=== PATIENT | female | born 1950 | race Caucasian/White ===

== ENCOUNTER 2018-07-27 16:21 | Emergency (ER) | payer MEDICARE, OTHER ==
--- NOTE | 2018-07-27 16:53 | ERPHSYRPT ---
- History of Present Illness Time Seen by Provider: 07/27/18 16:41 Source: patient Exam Limitations: no limitations Patient Subjective Stated Complaint: Pt states "I have bronchitis and I am taking medrol dose pack, I have taken it before and no reaction but now I am itching, I have a rash and I feel like my tongue is swollen. Triage Nursing Assessment: PT alert and oriented X 3, skin pwd. Pt ambulates with an upright steady gait, able to speak in clear full sentences. PT ichting her shoulders and legs, urticaria noted to chest. Physician History: The patient is a 67-year-old female with her complaining that she has developed an itchy red rash over her back face chest and arms this afternoon. She has been taking the Medrol dosepak since 07/24/18 for wheezing due to bronchitis. She was also given a prescription for ciprofloxacin for the bronchitis but has not taken it because she has a reaction to ciprofloxacin. She is concerned that she is having a reaction to something in the steroid Dosepak even though she has taken it in the past without any problems. She denies any shortness of breath. She states her tongue is slightly swollen. She is not having nausea or vomiting. 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 Timing/Duration: today, gradual onset, worse Quality: burning, itchy Severity: moderate Location: face, torso, extremities Possible Causes: no cause identified Associated Symptoms: edema, rash Allergies/Adverse Reactions: ciprofloxacin Allergy (Severe, Verified 07/27/18 16:35) chest pain and shortness of breath. acetaminophen [From Vicodin] Allergy (Verified 01/18/15 10:37) Shortness of Breath hydrocodone bitartrate [From Vicodin] Allergy (Verified 01/18/15 10:37) Shortness of Breath Home Medications: Aspirin 81 gm Chew [Baby Aspirin 81 mg Chew] 162 mg PO DAILY 01/12/15 [ History] Lovastatin 40 mg PO DAILY 01/12/15 [History] Metoprolol Succinate 50 mg [Toprol Xl 50 MG] 50 mg PO BID 01/12/15 [ History] Esomeprazole Magnesium [Nexium] 40 mg PO DAILY 01/18/15 [History] Hx Tetanus, Diphtheria Vaccination/Date Given: No Hx Influenza Vaccination/Date Given: No Hx Pneumococcal Vaccination/Date Given: No Immunizations Up to Date: Yes - Review of Systems Constitutional: No Fever, No Chills Eyes: No Symptoms Ears, Nose, & Throat: No Symptoms, Mouth Swelling (tongue) Respiratory: Cough Cardiac: No Chest Pain, No Edema, No Syncope Abdominal/Gastrointestinal: No Abdominal Pain, No Nausea, No Vomiting, No Diarrhea Genitourinary Symptoms: No Dysuria Musculoskeletal: No Back Pain, No Neck Pain Skin: Pruritis, Rash Neurological: No Dizziness, No Focal Weakness, No Sensory Changes Psychological: No Symptoms Endocrine: No Symptoms Hematologic/Lymphatic: No Symptoms Immunological/Allergic: No Symptoms All Other Systems: Reviewed and Negative - Past Medical History Pertinent Past Medical History: Yes Neurological History: No Pertinent History ENT History: No Pertinent History Cardiac History: Coronary Artery Disease, High Cholesterol, Hypertension Respiratory History: No Pertinent History Endocrine Medical History: No Pertinent History Musculoskeletal History: No Pertinent History GI Medical History: GERD History: No Pertinent History Psycho-Social History: No Pertinent History Female Reproductive Disorders: No Pertinent History - Past Surgical History Past Surgical History: Yes Neuro Surgical History: No Pertinent History Cardiac: Angioplasty, Cardiac Stent Respiratory: No Pertinent History Gastrointestinal: Other Genitourinary: No Pertinent History Musculoskeletal: Other Female Surgical History: No Pertinent History Other Surgical History: l4,l5 disc surgery,unknown,double mastoid at age 12, three natural childbirth - Social History Smoking Status: Former smoker Exposure to second hand smoke: No Drug Use: none Patient Lives Alone: No - Female History Hx Now: No - Nursing Vital Signs Nursing Vital Signs: Initial Vital Signs Temperature 98.0 F 07/27/18 16:28 Pulse Rate 82 07/27/18 16:28 Respiratory Rate 18 07/27/18 16:28 Blood Pressure 178/82 07/27/18 16:28 O2 Sat by Pulse Oximetry 96 07/27/18 16:28 Pain Scale Pain Intensity 0 - Physical Exam General Appearance: no apparent distress, alert Eye Exam: PERRL/EOMI, eyes nml inspection Ears, Nose, Throat Exam: pharynx normal, moist mucous membranes, other (mild tongue swelling) Neck Exam: normal inspection, non-tender, supple, full range of motion Respiratory Exam: normal breath sounds, No wheezing Cardiovascular Exam: regular rate/rhythm, normal heart sounds Gastrointestinal/Abdomen Exam: soft, mass, No tenderness Pelvic Exam: not done Rectal Exam: not done Back Exam: normal inspection Extremity Exam: normal inspection, normal range of motion Neurologic Exam: alert, oriented x 3, cooperative, normal mood/affect, sensation nml, No motor deficits Skin Exam: rash (red rash to face, neck, back, chest, arms,) SpO2 Interpretation: normal SpO2: 96 Oxygen Delivery: Room Air - Radiology Exams Chest X-ray Interpretation: Interpreted by me, Negative (comp 2V chest 12/19/17.) Ordered Tests: Active Orders 24 hr Category Date Time Status IV Insertion STAT Care 07/27/18 16:59 Active CHEST 2 VIEWS (PA AND LAT) Stat Exams 07/27/18 16:59 Taken Medication Summary Discontinued Medications Generic Name Dose Route Start Last Admin Trade Name Freq PRN Reason Stop Dose Admin Diphenhydramine HCl 50 mg 07/27/18 16:59 07/27/18 17:05 Benadryl 50 Mg/Ml IV 07/27/18 17:00 50 mg STAT ONE Administration Diphenhydramine HCl Confirm 07/27/18 17:01 Benadryl 50 Mg/Ml Administered 07/27/18 17:02 Dose 50 mg .ROUTE .STK-MED ONE Famotidine 20 mg 07/27/18 16:59 07/27/18 17:05 Pepcid 20 Mg Vial IV 07/27/18 17:00 20 mg STAT ONE Administration Famotidine Confirm 07/27/18 17:01 Pepcid 20 Mg Vial Administered 07/27/18 17:02 Dose 20 mg IV .STK-MED ONE Methylprednisolone Sodium Succinate 125 mg 07/27/18 16:59 07/27/18 17:05 Solu-Medrol 125 Mg IV 07/27/18 17:00 125 mg STAT ONE Administration Methylprednisolone Sodium Succinate Confirm 07/27/18 17:02 Solu-Medrol 125 Mg Administered 07/27/18 17:03 Dose 125 mg .ROUTE .STK-MED ONE - Progress Progress: improved Progress Note: 07/27/18 17:57 given benadryl 50 mg, solumedrol 125 mg, and pepcid 20 mg IV. Improved. Rash resolved. Counseled pt/family regarding: lab results, diagnosis, need for follow-up, rad results - Departure Time of Disposition: 17:58 Departure Disposition: Home Clinical Impression: Allergic reaction, Bronchitis Condition: Stable Critical Care Time: No Referrals: GUNNAR HENDERSON MD [Primary Care Provider] - Additional Instructions: You had an allergic reaction to an unknown allergen today. You were given Solu- Medrol 125 mg, Benadryl 50 mg, and Pepcid 20 mg by IV in the ER. You may take Benadryl 25-50 mg every 2-4 hours if needed. Stop taking the steroid Dosepak. You also have bronchitis. Do not take the ciprofloxacin that was prescribed for you earlier. Take doxycycline 100 mg 2 times a day for 10 days. Follow-up with your primary medical doctor next week. Prescriptions: Doxycycline Hyclate 100 mg [Vibramycin 100 MG] 100 mg PO BID #20 tab
[2018-07-27] MEDS ORDERED: solu-MEDROL 125 MG IV ONE (16:59)
[2018-07-27] MEDS ORDERED: Pepcid 20 MG VIAL IV ONE ×2 (16:59→17:01)
[2018-07-27] MEDS ORDERED: BENADRYL 50 MG/ML IV ONE (16:59)
[2018-07-27] MEDS ORDERED: BENADRYL 50 MG/ML ONE (17:01)
[2018-07-27] MEDS ORDERED: solu-MEDROL 125 MG ONE (17:02)
[2018-07-27 18:15] VITALS: BP 154/82; PULSE 68; O2SAT 95
--- NOTE | 2018-07-27 21:30 | XRAY ---
Indication: Chest pressure. Possible allergic reaction. Comparison: December 19, 2017. PA/lateral chest demonstrates chronic left costophrenic angle blunting. No focal infiltrate, consolidation, or large effusion. Heart is not enlarged again with CABG surgery. Bony thorax intact again with mild degenerative changes. Impression: Stable nonacute chest with chronic features.
== END 2018-07-27 18:21 | disposition home or self-care (01) ==
LOC: ED 16:21
DX: T78.40XA Allergy, unspecified, initial encounter (principal); J40 Bronchitis, not specified as acute or chronic; Z79.899 Other long term (current) drug therapy
CPT/HCPCS: 71046; 96374; 96375; 99284; J1200; J2930

== ENCOUNTER 2021-10-22 06:47 | Emergency (ER) | payer MEDICARE ==
[2021-10-22] MEDS ORDERED: ANTIVERT 25 MG PO ONE (07:07)
[2021-10-22] MEDS ORDERED: Sodium Chloride 0.9% 1000 ML 1,000 ML IV STA (07:07)
[2021-10-22] MEDS ORDERED: NORVASC 5 MG PO ONE (07:17)
[2021-10-22] MEDS ORDERED: Lasix 40 MG/4 ML IV ONE (07:17)
[2021-10-22] MEDS ORDERED: Sodium Chloride 0.9% 1000 ML 1,000 ML ONE (07:22)
[2021-10-22] MEDS ORDERED: Lasix 40 MG/4 ML ONE (07:22)
[2021-10-22] MEDS ORDERED: NORVASC 5 MG ONE (07:22)
[2021-10-22] MEDS ORDERED: ANTIVERT 25 MG ONE (07:22)
[2021-10-22 07:31] LABS: Absolute Neutrophil Ct (ANC) 5.72 (1.4-6.9); Basophil (Absolute #) 0.02 (0-0.4); Eosinophil % 2.2 % (0.00-5.0); Eosinophil (Absolute #) 0.17 (0-0.5); Hematocrit 41.3 % (35-47); Hemoglobin 13.2 gm/dl (12.0-16.0); Lymphocyte (Absolute #) 1.45 (1.0-4.6); Lymphocytes % 18.5 % (24.0-44.0); Mean Corpuscular Hemoglobin 27.5 pg (26-32); Mean Platelet Volume 10.2 fl (7.5-11.0); Monocyte (Absolute #) 0.49 (0.0-1.3); Monocytes % 6.2 % (0.0-12.0); Neutrophil % 72.8 % (36.0-66.0); Platelet Count 195 K/mm3 (150-450); Red Cell Distribution Width 14.9 % (11.5-14.0); White Blood Count 7.9 K/mm3 (4.0-10.5)
[2021-10-22] MEDS ORDERED: COREG 12.5 MG PO STA (07:31)
[2021-10-22] MEDS ORDERED: Imdur 30 MG PO STA (07:34)
[2021-10-22 07:47] LABS: ALBUMIN 4.1 g/dL (3.5-5.0); ALKALINE PHOSPHATASE 58 U/L (38-126); ANION GAP 13.3 MEQ/L (5-15); BLOOD UREA NITROGEN 14 mg/dL (7-17); CHLORIDE 107 mmol/L (98-107); Calcium 9.6 mg/dL (8.4-10.2); Carbon Dioxide 26 mmol/L (22-30); Creatinine 1 0.83 mg/dL (0.52-1.04); EST GLOMERULAR FILTRATION RATE > 60.0 ML/MIN; Glucose 132 mg/dL (74-106); Potassium 4.4 mmol/L (3.5-5.1); SGOT/AST 23 U/L (14-36); SGPT/ALT 21 U/L (0-35); SODIUM 142 mmol/L (137-145); Total Protein 6.7 g/dL (6.3-8.2)
--- NOTE | 2021-10-22 08:06 | ERPHSYRPT ---
- History of Present Illness Time Seen by Provider: 10/22/21 07:00 Source: patient Exam Limitations: no limitations Patient Subjective Stated Complaint: dizziness and nausea Triage Nursing Assessment: pt c/o dizziness and nausea which started at 0500 when letting the dog out this morning. Pt denies any vomiting or diarrhea. Physician History: At 5 AM the state with severe dizziness and vertigo. It was worse when she stood or moved she has had nausea but no vomiting her symptoms seem to be improving in the ER. She also was noted to have blood pressure on arrival of 225/95 she had not taken any of her antihypertensive medications. She had a similar episode about a week ago which resolved in a rather short time spontaneously. She denies any chest pain, she has no shortness of breath other than her usual dyspnea, and she denies any headache. Timing/Duration: today Severity: moderate Modifying Factors: Improves With: movement Associated Symptoms: nausea Allergies/Adverse Reactions: ciprofloxacin Allergy (Severe, Verified 10/22/21 07:02) chest pain and shortness of breath. acetaminophen [From Vicodin] Allergy (Verified 10/22/21 07:02) Shortness of Breath hydrocodone bitartrate [From Vicodin] Allergy (Verified 10/22/21 07:02) Shortness of Breath Home Medications: Aspirin 81 gm Chew [Baby Aspirin 81 mg Chew] 81 mg PO DAILY 01/12/15 [ History] Esomeprazole Magnesium [Nexium] 20 mg PO DAILY 01/18/15 [History] Amlodipine Besylate 2.5 mg PO DAILY 10/22/21 [History] Carvedilol 12.5 mg [Coreg 12.5 mg] 1 tab PO BID 10/22/21 [History] Clopidogrel Bisulfate [Clopidogrel] 75 mg PO DAILY 10/22/21 [History] Ezetimibe 10 mg [Zetia 10 MG] 1 tab PO DAILY 10/22/21 [History] Furosemide 40 mg [Lasix 40 MG] 1 tab PO DAILY 10/22/21 [History] Isosorbide Mononitrate [Isosorbide Mononitrate ER] 1 tab PO DAILY 10/22/21 [History] Potassium Chloride [Klor-Con M10] 1 tab PO DAILY 10/22/21 [History] Ranolazine [Ranolazine ER] 500 mg PO BID 10/22/21 [History] Hx Tetanus, Diphtheria Vaccination/Date Given: Yes Hx Influenza Vaccination/Date Given: No Hx Pneumococcal Vaccination/Date Given: No Immunizations Up to Date: Yes Travel Risk - International Travel Have you traveled outside of the country in past 3 weeks: No - Coronavirus Screening Are you exhibiting any of the following symptoms?: No Close contact with a COVID-19 positive Pt in past 14-21 Days: No - Vaccine Status Have you recieved a Covid-19 vaccination: Yes Aircraft [employer]: Moderna - Vaccination Dates Date of 2cond Vaccination (if applicable): 11/04/20 Comment: booster 08/11/21 - Review of Systems Constitutional: No Fever, No Chills Eyes: No Symptoms Ears, Nose, & Throat: Ear Pain (She has had some right ear pain and discomfort recently.) Respiratory: Dyspnea (States she has chronic dyspnea), No Cough Cardiac: No Chest Pain, No Edema, No Syncope Abdominal/Gastrointestinal: Nausea, No Abdominal Pain, No Vomiting, No Diarrhea Genitourinary Symptoms: No Dysuria Musculoskeletal: No Back Pain, No Neck Pain Skin: No Rash Neurological: Dizziness, No Focal Weakness, No Headache, No Sensory Changes Psychological: No Symptoms Endocrine: No Symptoms All Other Systems: Reviewed and Negative - Past Medical History Pertinent Past Medical History: Yes Neurological History: No Pertinent History ENT History: No Pertinent History Cardiac History: Coronary Artery Disease, High Cholesterol, Hypertension Respiratory History: No Pertinent History Endocrine Medical History: No Pertinent History Musculoskeletal History: No Pertinent History GI Medical History: GERD History: No Pertinent History Psycho-Social History: No Pertinent History Female Reproductive Disorders: No Pertinent History 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12,three natural childbirth - Social History Smoking Status: Never smoker Exposure to second hand smoke: No Drug Use: none Patient Lives Alone: No - Female History Hx Now: No - Nursing Vital Signs Nursing Vital Signs: Initial Vital Signs Pulse Rate 82 10/22/21 06:54 Respiratory Rate 24 10/22/21 06:54 Blood Pressure 225/95 10/22/21 06:54 O2 Sat by Pulse Oximetry 96 10/22/21 06:54 Pain Scale Pain Intensity 0 - Physical Exam General Appearance: mild distress Eye Exam: PERRL/EOMI, eyes nml inspection, other (Nystagmus with change in head position) Ears, Nose, Throat Exam: normal ENT inspection, TMs normal, pharynx normal, moist mucous membranes Neck Exam: normal inspection, non-tender, supple, full range of motion Respiratory Exam: normal breath sounds, lungs clear, No respiratory distress Cardiovascular Exam: regular rate/rhythm, normal heart sounds, normal peripheral pulses Gastrointestinal/Abdomen Exam: soft, normal bowel sounds, No tenderness, No mass Back Exam: normal inspection, normal range of motion, No CVA tenderness, No vertebral tenderness Extremity Exam: normal inspection, normal range of motion, pelvis stable Neurologic Exam: alert, oriented x 3, cooperative, 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, normal mood/affect, nml cerebellar function, nml station & gait, sensation nml, No motor deficits Skin Exam: normal color, warm, dry, No rash Lymphatic Exam: No adenopathy SpO2: 96 - Course Nursing assessment & vital signs reviewed: Yes EKG Interpreted by Me: RATE (69), Sinus Rhythm, NORMAL AXIS, NORMAL INTERVALS, Non-specific ST Changes - CT Exams Head CT Interpretation: Tele-radiologist Report Ordered Tests: Active Orders 24 hr Category Date Time Status EKG-ER Only STAT Care 10/22/21 07:07 Active Orthostatic Vital Signs STAT Care 10/22/21 07:09 Active CHEST 1 VIEW (PORTABLE) Stat Exams 10/22/21 07:08 Taken HEAD WITHOUT CONTRAST [CT] Stat Exams 10/22/21 07:08 Taken CBC W DIFF Stat Lab 10/22/21 07:23 Completed CMP Stat Lab 10/22/21 07:23 Completed Lactic Acid Stat Lab 10/22/21 07:25 Completed MAGNESIUM Stat Lab 10/22/21 07:23 Completed TROPONIN Q3H Lab 10/22/21 07:23 Completed TROPONIN Q3H Lab 10/22/21 10:15 Ordered TROPONIN Q3H Lab 10/22/21 13:15 Ordered TROPONIN Q3H Lab 10/22/21 16:15 Ordered TROPONIN Q3H Lab 10/22/21 19:15 Ordered UA W/RFX UR CULTURE Stat Lab 10/22/21 08:07 Completed Medication Summary Discontinued Medications Generic Name Dose Route Start Last Admin Trade Name Alison PRN Reason Stop Dose Admin Amlodipine Besylate 5 mg 10/22/21 07:17 10/22/21 07:31 Amlodipine Besylate 5 Mg Tablet PO 10/22/21 07:18 5 mg STAT ONE Administration Amlodipine Besylate Confirm 10/22/21 07:22 Amlodipine Besylate 5 Mg Tablet Administered 10/22/21 07:23 Dose 5 mg .ROUTE .STK-MED ONE Carvedilol 12.5 mg 10/22/21 10:00 Carvedilol 12.5 Mg Tablet PO 11/21/21 09:59 BID MERCEDES Carvedilol 12.5 mg 10/22/21 07:31 10/22/21 07:39 Carvedilol 12.5 Mg Tablet PO 10/22/21 07:32 12.5 mg ONCE STA Administration Furosemide 40 mg 10/22/21 07:17 10/22/21 07:31 Furosemide 40 Mg/4 Ml Vial IV 10/22/21 07:18 40 mg STAT ONE Administration Furosemide Confirm 10/22/21 07:22 Furosemide 40 Mg/4 Ml Vial Administered 10/22/21 07:23 Dose 40 mg .ROUTE .STK-MED ONE Sodium Chloride 1,000 mls @ 999 mls/hr 10/22/21 07:07 10/22/21 08:41 Sodium Chloride 0.9% 1000 Ml IV 10/22/21 08:07 Infused .Q1H1M STA Infusion Sodium Chloride Confirm 10/22/21 07:22 Sodium Chloride 0.9% 1000 Ml Administered 10/22/21 07:23 Dose 1,000 mls @ ud .ROUTE .STK-MED ONE Isosorbide Mononitrate 30 mg 10/22/21 10:00 Isosorbide Mononitrate 30 Mg Tab PO 11/21/21 09:59 DAILY MERCEDES Isosorbide Mononitrate 30 mg 10/22/21 07:34 10/22/21 07:39 Isosorbide Mononitrate 30 Mg Tab PO 10/22/21 07:35 30 mg ONCE STA Administration Meclizine HCl 25 mg 10/22/21 07:07 10/22/21 07:31 Meclizine Hcl 25 Mg Tablet PO 10/22/21 07:08 25 mg STAT ONE Administration Meclizine HCl Confirm 10/22/21 07:22 Meclizine Hcl 25 Mg Tablet Administered 10/22/21 07:23 Dose 25 mg .ROUTE .STK-MED ONE Lab/Rad Data: Laboratory Result Diagrams 10/22/21 07:23 10/22/21 07:23 Laboratory Results 10/22/21 10/22/21 10/22/21 Range/Units 08:07 07:25 07:23 WBC (4.0-10.5) K/mm3 RBC (4.1-5.4) M/mm3 Hgb (12.0-16.0) gm/dl Hct (35-47) % MCV (78-100) fl MCH (26-32) pg MCHC (32-36) g/dl RDW (11.5-14.0) % Plt Count (150-450) K/mm3 MPV (7.5-11.0) fl Gran % (36.0-66.0) % Eos # (Auto) (0-0.5) Absolute Lymphs (auto) (1.0-4.6) Absolute Monos (auto) (0.0-1.3) Lymphocytes % (24.0-44.0) % Monocytes % (0.0-12.0) % Eosinophils % (0.00-5.0) % Basophils % (0.0-0.4) % Absolute Granulocytes (1.4-6.9) Basophils # (0-0.4) Sodium (137-145) mmol/L Potassium (3.5-5.1) mmol/L Chloride (98-107) mmol/L Carbon Dioxide (22-30) mmol/L Anion Gap (5-15) MEQ/L BUN (7-17) mg/dL Creatinine (0.52-1.04) mg/dL Estimated GFR ML/MIN Glucose (74-106) mg/dL Lactic Acid 1.5 (0.4-2.0) Calcium (8.4-10.2) mg/dL Magnesium (1.6-2.3) mg/dL Total Bilirubin (0.2-1.3) mg/dL AST (14-36) U/L ALT (0-35) U/L Alkaline Phosphatase (38-126) U/L Troponin I < 0.012 (0.000-0.034) ng/mL Serum Total Protein (6.3-8.2) g/dL Albumin (3.5-5.0) g/dL Urine Color COLORLESS (YELLOW) Urine Appearance CLEAR (CLEAR) Urine pH 8.0 (5-6) Ur Specific [place] 1.003 (1.005-1.025) Urine Protein NEGATIVE (Negative) Urine Ketones NEGATIVE (NEGATIVE) Urine Blood NEGATIVE (0-5) Serjio/ul Urine Nitrite NEGATIVE (NEGATIVE) Urine Bilirubin NEGATIVE (NEGATIVE) Urine Urobilinogen NEGATIVE (0-1) mg/dL Ur Leukocyte Esterase NEGATIVE (NEGATIVE) Urine WBC (Auto) NONE (0-5) /HPF Urine RBC (Auto) NONE (0-2) /HPF U Epithel Cells (Auto) NONE (FEW) /HPF Urine Bacteria (Auto) NONE (NEGATIVE) /HPF Urine Culture Reflexed NO (NO) Urine Glucose NEGATIVE (NEGATIVE) mg/dL 10/22/21 10/22/21 Range/Units 07:23 07:23 WBC 7.9 (4.0-10.5) K/mm3 RBC 4.80 (4.1-5.4) M/mm3 Hgb 13.2 (12.0-16.0) gm/dl Hct 41.3 (35-47) % MCV 86.0 (78-100) fl MCH 27.5 (26-32) pg MCHC 32.0 (32-36) g/dl RDW 14.9 H (11.5-14.0) % Plt Count 195 (150-450) K/mm3 MPV 10.2 (7.5-11.0) fl Gran % 72.8 H (36.0-66.0) % Eos # (Auto) 0.17 (0-0.5) Absolute Lymphs (auto) 1.45 (1.0-4.6) Absolute Monos (auto) 0.49 (0.0-1.3) Lymphocytes % 18.5 L (24.0-44.0) % Monocytes % 6.2 (0.0-12.0) % Eosinophils % 2.2 (0.00-5.0) % Basophils % 0.3 (0.0-0.4) % Absolute Granulocytes 5.72 (1.4-6.9) Basophils # 0.02 (0-0.4) Sodium 142 (137-145) mmol/L Potassium 4.4 (3.5-5.1) mmol/L Chloride 107 (98-107) mmol/L Carbon Dioxide 26 (22-30) mmol/L Anion Gap 13.3 (5-15) MEQ/L BUN 14 (7-17) mg/dL Creatinine 0.83 (0.52-1.04) mg/dL Estimated GFR > 60.0 ML/MIN Glucose 132 H (74-106) mg/dL Lactic Acid (0.4-2.0) Calcium 9.6 (8.4-10.2) mg/dL Magnesium 2.0 (1.6-2.3) mg/dL Total Bilirubin 0.60 (0.2-1.3) mg/dL AST 23 (14-36) U/L ALT 21 (0-35) U/L Alkaline Phosphatase 58 (38-126) U/L Troponin I (0.000-0.034) ng/mL Serum Total Protein 6.7 (6.3-8.2) g/dL Albumin 4.1 (3.5-5.0) g/dL Urine Color (YELLOW) Urine Appearance (CLEAR) Urine pH (5-6) Ur Specific Dodge (1.005-1.025) Urine Protein (Negative) Urine Ketones (NEGATIVE) Urine Blood (0-5) Serjio/ul Urine Nitrite (NEGATIVE) Urine Bilirubin (NEGATIVE) Urine Urobilinogen (0-1) mg/dL Ur Leukocyte Esterase (NEGATIVE) Urine WBC (Auto) (0-5) /HPF Urine RBC (Auto) (0-2) /HPF U Epithel Cells (Auto) (FEW) /HPF Urine Bacteria (Auto) (NEGATIVE) /HPF Urine Culture Reflexed (NO) Urine Glucose (NEGATIVE) mg/dL - Progress Progress: improved - Departure Departure Disposition: Home Clinical Impression: Labyrinthitis Condition: Stable Critical Care Time: No Referrals: GUNNAR HENDERSON MD [Primary Care Provider] - Follow up/PCP as directed Instructions: Vertigo (a Type of Dizziness) (DC) Prescriptions: Meclizine HCl 25 mg [Antivert 25 mg] 25 mg PO Q8H 7 Days #20 tablet
[2021-10-22 08:13] LABS: Appearance CLEAR (CLEAR); Bilirubin NEGATIVE (NEGATIVE); Blood NEGATIVE Ery/ul (0-5); Glucose NEGATIVE (NEGATIVE); Ketones NEGATIVE (NEGATIVE); Leukocyte Esterase NEGATIVE (NEGATIVE); Nitrite NEGATIVE (NEGATIVE); Protein,Urine Dip NEGATIVE (Negative); Specific Gravity 1.003 (1.005-1.025); Urobilinogen NEGATIVE mg/dL (0-1)
[2021-10-22 09:03] VITALS: BP 158/101; PULSE 67; O2SAT 98
[2021-10-22] MEDS ORDERED: Imdur 30 MG PO SCH (10:00)
[2021-10-22] MEDS ORDERED: COREG 12.5 MG PO SCH (10:00)
--- NOTE | 2021-10-22 18:25 | XRAY ---
Indication: Vertigo, dizziness, elevated blood pressure. Multiple contiguous axial images obtained through the head without contrast. Comparison: None Age-appropriate global atrophy. 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 No acute intracranial hemorrhage, hydrocephalus, or mass effect. Fink-white matter differentiation preserved. Bony calvarium intact with incidental hyperostosis frontalis interna. Visualized paranasal sinuses and mastoid air cells are clear. Impression: 1. 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 2. No acute intracranial abnormalities. Comment: Preliminary interpretation made by [facility]. No critical discrepancy.
--- NOTE | 2021-10-22 18:28 | XRAY ---
Indication: Dizziness. Elevated blood pressure. Comparison: July 31, 2018. Portable apical lordotic chest remains clear with chronic left costophrenic angle blunting. Heart not enlarged again with CABG. Bony thorax intact again with osteopenia and degenerative changes. No new/acute findings.
== END 2021-10-22 09:20 | disposition home or self-care (01) ==
LOC: ED 06:47
DX: H83.01 Labyrinthitis, right ear (principal); R42 Dizziness and giddiness; R11.0 Nausea; I10 Essential (primary) hypertension; E78.5 Hyperlipidemia, unspecified; I25.10 Atherosclerotic heart disease of native coronary artery without angina pectoris; K21.9 Gastro-esophageal reflux disease without esophagitis; Z79.899 Other long term (current) drug therapy
CPT/HCPCS: 36415; 70450; 71045; 80053; 81001; 83605; 83735; 84484; 85025; 93005; 96360; 96374; 99284; J1940; A9270-GY

== ENCOUNTER 2023-02-06 20:58 | Emergency (ER) | payer MEDICARE ==
[2023-02-06] MEDS ORDERED: TORAdol 30 mg Injection IM ONE (22:25)
[2023-02-06] MEDS ORDERED: TORAdol 30 mg Injection ONE (22:27)
--- NOTE | 2023-02-06 22:37 | ERPHSYRPT ---
- History of Present Illness Time Seen by Provider: 02/06/23 21:30 Source: patient Exam Limitations: no limitations Patient Subjective Stated Complaint: tripped over flipflop and fell in driveway, landed on L hip and L elbow Triage Nursing Assessment: pt arrived via Medic 1, pt alert and oriented x3, pt c/o L hip/buttock pain and L elbow pain, pt has abrasion noted L elbow that 6 cm X 1 cm, pt on plavix, bleeding controlled, no shortening or rotation noted, bilateraly +2 pedal pulses, wound care applied to L elbow upon triage Physician History: Patient is a 72-year-old female presents to our ED via EMS/medic 1 for evaluation of left hip and left elbow pain. Patient states she was outdoors when she tripped on her flip-flop. The fall was not associated with any neuro or cardiovascular symptomology. No chest pain or shortness of breath. No nausea vomiting or diaphoresis. No numbness tingling or weakness. Patient landed on gravel. No BHT or LOC. No neck pain. Cervical spine cleared clinically. Patient states she fell in her driveway. Patient landed on her left hip and left elbow. Left hip pain described as an ache that is localized to the posterior lateral aspect of the left hip. Patient has an abrasion to her left elbow. It is on Plavix. No headache. No numbness tingling or weakness. Injury occurred just prior to arrival. Patient voices no other complaints or concerns at this time. Daughter at bedside. Portions of this note were created with voice recognition technology. There may be grammatical, spelling, punctuation or sound alike errors Method of Injury: fell (She tripped and fell. Patient tripped on her flip- flops) Occurred: just prior to arrival Quality: constant Severity of Pain-Max: moderate Severity of Pain-Current: mild Lower Extremities Pain: leg: left, other: bilateral (Involved lower extremities neurovascular intact distally. Bilateral PT DP pulse palpable. Patient also complains of left elbow pain.) Modifying Factors: Improves With: movement Associated Symptoms: none Allergies/Adverse Reactions: ciprofloxacin Allergy (Severe, Verified 02/06/23 21:01) chest pain and shortness of breath. acetaminophen [From Vicodin] Allergy (Verified 02/06/23 21:01) Shortness of Breath hydrocodone bitartrate [From Vicodin] Allergy (Verified 02/06/23 21:01) Shortness of Breath Home Medications: Aspirin 81 gm Chew [Baby Aspirin 81 mg Chew] 81 mg PO DAILY 01/12/15 [History] Esomeprazole Magnesium [Nexium] 20 mg PO DAILY 01/18/15 [History] Amlodipine Besylate 2.5 mg PO DAILY 10/22/21 [History] Carvedilol 12.5 mg [Coreg 12.5 mg] 1 tab PO BID 10/22/21 [History] Clopidogrel Bisulfate [Clopidogrel] 75 mg PO DAILY 10/22/21 [History] Ezetimibe 10 mg [Zetia 10 MG] 1 tab PO DAILY 10/22/21 [History] Isosorbide Mononitrate [Isosorbide Mononitrate ER] 1 tab PO DAILY 10/22/21 [History] Ranolazine [Ranolazine ER] 500 mg PO BID 10/22/21 [History] Cyanocobalamin (Vitamin B-12) [Vitamin B12] 1,000 mcg PO DAILY 02/07/23 [History] Evolocumab [Repatha Sureclick] 140 mg IM WEEKLY 02/07/23 [History] Mirabegron [Myrbetriq] 25 mg PO DAILY 02/07/23 [History] Hx Tetanus, Diphtheria Vaccination/Date Given: Yes Hx Influenza Vaccination/Date Given: No Hx Pneumococcal Vaccination/Date Given: No Immunizations Up to Date: Yes Travel Risk - International Travel Have you traveled outside of the country in past 3 weeks: No - Coronavirus Screening Are you exhibiting any of the following symptoms?: No Close contact with a COVID-19 positive Pt in past 14-21 Days: No - Vaccine Status Have you recieved a Covid-19 vaccination: Yes Process Controller: Moderna - Vaccination Dates Date of 2cond Vaccination (if applicable): 11/04/20 - Review of Systems Constitutional: No Symptoms, No Fever, No Chills Eyes: No Symptoms Ears, Nose, & Throat: No Symptoms Respiratory: No Symptoms, No Cough, No Dyspnea Cardiac: No Symptoms, No Chest Pain, No Edema, No Syncope Abdominal/Gastrointestinal: No Symptoms, No Abdominal Pain, No Nausea, No Vomiting, No Diarrhea Genitourinary Symptoms: No Symptoms, No Dysuria Musculoskeletal: No Symptoms, No Back Pain, No Neck Pain Skin: No Symptoms, No Rash Neurological: No Symptoms, No Dizziness, No Focal Weakness, No Sensory Changes Psychological: No Symptoms Endocrine: No Symptoms Hematologic/Lymphatic: No Symptoms Immunological/Allergic: No Symptoms All Other Systems: Reviewed and Negative - Past Medical History Pertinent Past Medical History: Yes Neurological History: No Pertinent History ENT History: No Pertinent History Cardiac History: Hypertension, Myocardial Infarction ([place]) Respiratory History: CHF, Pneumonia Endocrine Medical History: No Pertinent History Musculoskeletal History: No Pertinent History GI Medical History: GERD History: No Pertinent History Psycho-Social History: No Pertinent History Female Reproductive Disorders: No Pertinent History Other Medical History: DOUBLE MASTOID SURGERY AT AGE 11, OPEN HEART SURGERY. 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12,three natural childbirth - Social History Smoking Status: Former smoker Exposure to second hand smoke: No Drug Use: none Patient Lives Alone: No - Nursing Vital Signs Nursing Vital Signs: Initial Vital Signs Temperature 98.2 F 02/06/23 21:05 Pulse Rate 77 02/06/23 21:05 Respiratory Rate 18 02/06/23 21:05 Blood Pressure 169/61 02/06/23 21:05 O2 Sat by Pulse Oximetry 97 02/06/23 21:05 Pain Scale Pain Intensity 6 - Physical Exam General Appearance: no apparent distress, alert Eyes, Ears, Nose, Throat Exam: normal ENT inspection, TMs normal, pharynx normal, moist mucous membranes Neck Exam: normal inspection, non-tender, supple, full range of motion Cardiovascular/Respiratory Exam: chest non-tender, normal breath sounds, regular rate/rhythm, no respiratory distress Gastrointestinal/Abdominal Exam: non-tender, guarding Back Exam: normal inspection, No vertebral tenderness Hips Exam: right: non-tender, normal inspection, normal range of motion, no evidence of injury, bilateral: pain, soft tissue tenderness, other (The involved extremity is neurovascular intact distally. Compartments are soft. Cap refill less than 2 seconds. No open or draining lesions. Pain at the posterior lateral aspect of the left hip.) Knees Exam: bilateral knee: non-tender, normal inspection, normal range of motion, no evidence of injury Ankle Exam: bilateral ankle: non-tender, normal inspection, normal range of motion, no evidence of injury Foot Exam: bilateral foot: non-tender, normal inspection, normal range of motion, no evidence of injury Neuro/Tendon Exam: normal sensation, normal motor functions Mental Status Exam: alert, oriented x 3, cooperative Skin Exam: normal color, warm, dry SpO2 Interpretation: normal SpO2: 96 O2 Delivery: Room Air - Course Nursing assessment & vital signs reviewed: Yes - Radiology Exams Elbow X-ray Interpretation: Teleradiologist Report (No fracture of left elbow. Soft tissue swelling observed.) - CT Exams Lower Extremity CT Interpretation: Tele-radiologist Report (Nondisplaced nonangulated subcapital fracture left femur) Ordered Tests: Active Orders 24 hr Category Date Time Status IV Insertion STAT Care 02/07/23 00:19 Active ELBOW (MINIMUM 3 VIEWS) Stat Exams 02/06/23 22:20 Completed LOWER EXTREMITY WO CONTRAST [CT] Stat Exams 02/06/23 21:29 Completed Medication Summary Generic Name Dose Route Start Last Admin Trade Name Freq PRN Reason Stop Dose Admin Carvedilol 12.5 mg 02/07/23 10:00 02/07/23 00:43 Carvedilol 12.5 Mg Tablet PO 03/09/23 09:59 12.5 mg BID MERCEDES Administration Discontinued Medications Generic Name Dose Route Start Last Admin Trade Name Freq PRN Reason Stop Dose Admin Amlodipine Besylate 2.5 mg 02/07/23 00:22 02/07/23 00:43 Amlodipine Besylate 5 Mg Tablet PO 02/07/23 00:23 2.5 mg ONCE ONE Administration Amlodipine Besylate 5 mg 02/07/23 00:22 02/07/23 00:44 Amlodipine Besylate 5 Mg Tablet PO 02/07/23 00:23 5 mg STAT ONE Administration Amlodipine Besylate Confirm 02/07/23 00:27 Amlodipine Besylate 5 Mg Tablet Administered 02/07/23 00:28 Dose 10 mg .ROUTE .STK-MED ONE Bacitracin Zinc 0.9 each 02/07/23 01:13 02/07/23 01:14 Bacitracin Packet 1 Each Pckt TP 02/07/23 01:14 0.9 each STAT ONE Administration Ketorolac Tromethamine 30 mg 02/06/23 22:25 02/06/23 22:30 Ketorolac Tromethamine 30 Mg/Ml Inj IM 02/06/23 22:26 30 mg STAT ONE Administration Ketorolac Tromethamine Confirm 02/06/23 22:27 Ketorolac Tromethamine 30 Mg/Ml Inj Administered 02/06/23 22:28 Dose 30 mg .ROUTE .STK-MED ONE Ranolazine 500 mg 02/07/23 00:20 02/07/23 00:44 Ranolazine 500 Mg Tab.Sr.12h PO 02/07/23 00:21 500 mg ONCE ONE Administration Lab/Rad Data: Laboratory Result Diagrams 02/07/23 00:15 02/06/23 00:15 Laboratory Results 02/07/23 02/06/23 Range/Units 00:15 00:15 WBC 11.7 H (4.0-10.5) x10^3/uL RBC 4.43 (4.1-5.4) x10^6/uL Hgb 12.2 (12.0-16.0) g/dL Hct 38.8 (35-47) % MCV 87.6 (78-100) fL MCH 27.5 (26-32) pg MCHC 31.4 L (32-36) g/dL RDW 14.5 H (11.5-14.0) % Plt Count 182 (150-450) x10^3/uL MPV 10.5 (7.5-11.0) fL Gran % 86.2 H (36.0-66.0) % Immature Gran % (Auto) 0.5 H (0.00-0.4) % Nucleat RBC Rel Count 0.0 (0.00-0.1) % Eos # (Auto) 0.08 (0-0.5) x10^3/uL Immature Gran # (Auto) 0.06 H (0.00-0.03) x10^3u/L Absolute Lymphs (auto) 1.10 (1.0-4.6) x10^3/uL Absolute Monos (auto) 0.34 (0.0-1.3) x10^3/uL Absolute Nucleated RBC 0.00 (0.00-0.01) x10^3u/L Lymphocytes % 9.4 L (24.0-44.0) % Monocytes % 2.9 (0.0-12.0) % Eosinophils % 0.7 (0.00-5.0) % Basophils % 0.3 (0.0-0.4) % Absolute Granulocytes 10.10 H (1.4-6.9) x10^3/uL Basophils # 0.03 (0-0.4) x10^3/uL Sodium 141 (137-145) mmol/L Potassium 4.0 (3.5-5.1) mmol/L Chloride 107 (98-107) mmol/L Carbon Dioxide 25 (22-30) mmol/L Anion Gap 13.5 (5-15) MEQ/L BUN 21 H (7-17) mg/dL Creatinine 0.78 (0.52-1.04) mg/dL Estimated GFR > 60.0 ML/MIN Glucose 157 H (74-106) mg/dL Calcium 9.4 (8.4-10.2) mg/dL Total Bilirubin 0.50 (0.2-1.3) mg/dL AST 37 H (14-36) U/L ALT 25 (0-35) U/L Alkaline Phosphatase 46 (38-126) U/L Serum Total Protein 6.8 (6.3-8.2) g/dL Albumin 3.9 (3.5-5.0) g/dL - Progress Progress: improved Progress Note: Case discussed with orthopedic surgeon at [facility] who accepts transfer at [id number]. However they do not currently have beds available. They anticipate the wait time to be at the earliest sometime tomorrow afternoon. Possibly 2 days [facility] was contacted first per patient's request. 02/07/23 00:[address] Bryant at 12:34 AM hospitalist at [facility] who accepts transfer. However no beds available until tomorrow afternoon at the earliest 02/07/23 00:[address] Carroll orthopedic surgeon at [facility] who declined transfer in light of patient's past medical history. They do not have cardiology available to medically clear patient for procedure. 02/07/23 01:19 Case discussed with ER physician at [facility] who accepts transfer. Transfer was accepted at 1:27 AM. Plan of care discussed with patient. She agrees to transfer to [facility] for further evaluation and treatment. Portions of this note were created with voice recognition technology. There may be grammatical, spelling, punctuation or sound alike errors 02/07/23 01:31 Patient is a 72-year-old female presents to our ED for evaluation of pain to her left hip status post mechanical fall at home. Patient tripped on her flip- flops. Patient fell onto her left hip and left elbow. X-ray left elbow negative for fracture dislocations. CT left hip reveals a nondisplaced angulated subcapital fracture. Involved extremities neurovascular intact distally. CBC CMP essentially nonremarkable. Patient received Toradol for pain control. Patient resting comfortably. Patient declined additional pain medication. Patient was accepted to [facility] for further evaluation and treatment. Complexity of problem addressed is moderate new diagnosis with uncertain prognosis. Critical care time Complexity of data reviewed and analyzed is moderate. Dr. Castañeda independently reviewed and analyzed laboratory work-up. Risk of complication and or risk morbidity/mortality of patient management is high. Patient will require hospitalization for further evaluation and treatment of hip fracture. In light of patient's significant cardiovascular history patient will require medical clearance prior to pubic intervention Plan of care established via shared decision making. Vital stable. Patient agrees to transfer to [facility] for further evaluation and treatment. Portions of this note were created with voice recognition technology. There may be grammatical, spelling, punctuation or sound alike errors 02/07/23 01:33 Counseled pt/family regarding: lab results, diagnosis, rad results - Departure Departure Disposition: Observation Clinical Impression: Subcapital fracture of femur, Elbow abrasion, Fall Condition: Stable Critical Care Time: No Referrals: GUNNAR HENDERSON MD [Primary Care Provider] - Follow up/PCP as directed
--- NOTE | 2023-02-06 22:38 | XRAY ---
Indication: Pain following fall. Multiple contiguous axial images obtained through the left hip. Sagittal and coronal reformatted images obtained. Comparison: None Nondisplaced nonangulated subcapital femur fracture. No other acute fracture, dislocation, or suspicious bony lesions. Surrounding soft tissues demonstrates mild scattered arteriosclerotic calcifications and sigmoid diverticulosis. No suspicious solid/cystic mass, abnormal fluid collection, or pathologic lymphadenopathy. Impression: Subcapital femur fracture. Incidental arteriosclerotic disease and sigmoid diverticulosis.
--- NOTE | 2023-02-06 23:29 | XRAY ---
CLINICAL HISTORY:Pain. History of fall; COMPARISON:None; TECHNIQUES:X-ray of the left elbow showing 3 views: AP, lateral and oblique views; FINDINGS: No acute fracture or dislocation. The joint spaces are maintained. Normal alignment of the bones of the left elbow joint. No sclerotic or lytic bony lesions. Mild soft tissue swelling is seen at the posterior elbow joint. IMPRESSION: 1. No definite acute fracture or dislocation. 2. Mild soft tissue swelling is seen at the posterior elbow joint. 3. Recommend clinical correlation and follow-up with CT if clinically needed. DISCLAIMER: A subtle bone abnormality or fracture may not be readily apparent on x-rays, thus clinical correlation and further imaging including follow up CT, MRI, or follow up x-rays are advised as needed. Electronically Signed by: Randy Benitez MD. (02/06/2023 22:25:13 CAD PROGRAMMER)
[2023-02-07 00:19] LABS: BASOPHIL % 0.3 % (0.0-0.4); Basophil (Absolute #) 0.03 x10^3/uL (0-0.4); Eosinophil % 0.7 % (0.00-5.0); Eosinophil (Absolute #) 0.08 x10^3/uL (0-0.5); Hematocrit 38.8 % (35-47); Hemoglobin 12.2 g/dL (12.0-16.0); IMMATURE GRAN # 0.06 x10^3u/L (0.00-0.03); IMMATURE GRAN % 0.5 % (0.00-0.4); Lymphocytes % 9.4 % (24.0-44.0); Mean Cell Volume 87.6 fL (78-100); Mean Corpuscular Hemoglobin 27.5 pg (26-32); Mean Corpuscular Hgb Concent. 31.4 g/dL (32-36); Mean Platelet Volume 10.5 fL (7.5-11.0); Monocyte (Absolute #) 0.34 x10^3/uL (0.0-1.3); Monocytes % 2.9 % (0.0-12.0); Neutrophil % 86.2 % (36.0-66.0); Platelet Count 182 x10^3/uL (150-450); Red Blood Count 4.43 x10^6/uL (4.1-5.4); Red Cell Distribution Width 14.5 % (11.5-14.0); White Blood Count 11.7 x10^3/uL (4.0-10.5)
[2023-02-07] MEDS ORDERED: Ranexa 500 MG PO ONE (00:20)
[2023-02-07] MEDS ORDERED: NORVASC 5 MG PO ONE ×2 (00:22)
[2023-02-07] MEDS ORDERED: NORVASC 5 MG ONE (00:27)
[2023-02-07] MEDS ORDERED: COREG 12.5 MG ONE (00:33)
[2023-02-07 00:35] LABS: ALBUMIN 3.9 g/dL (3.5-5.0); ALKALINE PHOSPHATASE 46 U/L (38-126); ANION GAP 13.5 MEQ/L (5-15); BLOOD UREA NITROGEN 21 mg/dL (7-17); CHLORIDE 107 mmol/L (98-107); Calcium 9.4 mg/dL (8.4-10.2); Carbon Dioxide 25 mmol/L (22-30); Creatinine 1 0.78 mg/dL (0.52-1.04); EST GLOMERULAR FILTRATION RATE > 60.0 ML/MIN; Glucose 157 mg/dL (74-106); SGOT/AST 37 U/L (14-36); SGPT/ALT 25 U/L (0-35); SODIUM 141 mmol/L (137-145); Total Protein 6.8 g/dL (6.3-8.2)
[2023-02-07] MEDS ORDERED: BACIGUENT PACKET TP ONE (01:13)
[2023-02-07 02:06] VITALS: BP 168/58; PULSE 80
[2023-02-07 03:35] VITALS: O2SAT 96
[2023-02-07] MEDS ORDERED: COREG 12.5 MG PO SCH (10:00)
== END 2023-02-07 02:18 | disposition short-term general hospital (02) ==
LOC: ED 20:58
DX: S72.012A Unspecified intracapsular fracture of left femur, initial encounter for closed fracture (principal); S50.312A Abrasion of left elbow, initial encounter; W01.0XXA Fall on same level from slipping, tripping and stumbling without subsequent striking against object, initial encounter; Y92.007 Garden or yard of unspecified non-institutional (private) residence as the place of occurrence of the external cause; I10 Essential (primary) hypertension; Z79.02 Long term (current) use of antithrombotics/antiplatelets; Z79.899 Other long term (current) drug therapy
CPT/HCPCS: 36000; 36415; 73080; 73700; 80053; 85025; 96372; 99285; J1885; A9270-GY

== ENCOUNTER 2023-08-21 13:38 | Emergency (ER) | payer MEDICARE ==
[2023-08-21 14:25] VITALS: TEMP 97.8
--- NOTE | 2023-08-21 14:44 | ERPHSYRPT ---
- History of Present Illness Time Seen by Provider: 08/21/23 13:50 Source: patient Exam Limitations: no limitations Patient Subjective Stated Complaint: pt states that she was at [facility] on sunday. pt states that Dr. Rosa said she needed to have her gallbladder removed Triage Nursing Assessment: pt came into the er via wheelchair; pt transferred self to the cot; c/o abd pain; pt states she currently denies pain; abd is soft, round, nontender; c/o N/V; pt states last BM 2 days ago; active bowel sounds in all quads; skin PDW; no respiratory distress; vitals wnl Physician History: Patient is a 72-year-old female with a history of hypertension DC CHF cardiac stent on Plavix and aspirin presents to our emergency department for preoperative laboratory testing and admission for a laparoscopic cholecystectomy. Patient had imaging studies performed on Sunday 2 days ago for evaluation of right upper quadrant pain. Patient was observed to have a surgical gallbladder. Surgery was not done at that time due to patient's antiplatelet medication. Patient currently feels well. No active pain. Patient declined pain medication. Patient otherwise feels well. She voices no other complaints or concerns at this time. Portions of this note were created with voice recognition technology. There may be grammatical, spelling, punctuation or sound alike errors Timing/Duration: day(s) Severity: moderate (2 days ago) Modifying Factors: Improves With: other (Palpation right upper quadrant reproduces pain) Associated Symptoms: denies symptoms Allergies/Adverse Reactions: ciprofloxacin Allergy (Severe, Verified 08/21/23 14:07) chest pain and shortness of breath. acetaminophen [From Vicodin] Allergy (Verified 08/21/23 14:07) Shortness of Breath hydrocodone bitartrate [From Vicodin] Allergy (Verified 08/21/23 14:07) Shortness of Breath methylprednisolone Allergy (Verified 08/21/23 14:26) sulfamethoxazole [From Bactrim] Adverse Reaction (Verified 08/21/23 14:08) Vomiting trimethoprim [From Bactrim] Adverse Reaction (Verified 08/21/23 14:08) Vomiting Home Medications: Aspirin 81 gm Chew [Baby Aspirin 81 mg Chew] 81 mg PO DAILY 01/12/15 [History] Esomeprazole Magnesium [Nexium] 20 mg PO DAILY 01/18/15 [History] Carvedilol 12.5 mg [Coreg 12.5 mg] 1 tab PO BID 10/22/21 [History] Clopidogrel Bisulfate [Clopidogrel] 75 mg PO DAILY 10/22/21 [History] Ezetimibe 10 mg [Zetia 10 MG] 1 tab PO DAILY 10/22/21 [History] Isosorbide Mononitrate [Isosorbide Mononitrate ER] 1 tab PO DAILY 10/22/21 [History] Ranolazine [Ranolazine ER] 500 mg PO BID 10/22/21 [History] Cyanocobalamin (Vitamin B-12) [Vitamin B12] 1,000 mcg PO DAILY 02/07/23 [History] Evolocumab [Repatha Sureclick] 140 mg IM WEEKLY 02/07/23 [History] Amlodipine Besylate 5 mg [Norvasc 5 mg] 5 mg PO DAILY 08/21/23 [History] Furosemide 40 mg [Lasix 40 MG] 40 mg PO DAILY 08/21/23 [History] Hydrocodone/Acetaminophen [Hydrocodone-Acetamin 5-325 mg] 1 tab PO Q6HPRN PRN MDD 4 08/21/23 [History] Potassium Chloride Tab* [Klor Con] 10 meq PO DAILY 08/21/23 [History] Hx Tetanus, Diphtheria Vaccination/Date Given: Yes Hx Influenza Vaccination/Date Given: No Hx Pneumococcal Vaccination/Date Given: No Travel Risk - International Travel Have you traveled outside of the country in past 3 weeks: No - Coronavirus Screening Are you exhibiting any of the following symptoms?: Yes Symptoms: Vomiting/Diarrhea Close contact with a COVID-19 positive Pt in past 14-21 Days: No - Vaccine Status Have you recieved a Covid-19 vaccination: Yes [employer]: Moderna - Vaccination Dates Date of 2cond Vaccination (if applicable): 11/04/20 - Review of Systems Constitutional: No Symptoms, No Fever, No Chills Eyes: No Symptoms Ears, Nose, & Throat: No Symptoms Respiratory: No Symptoms, No Cough, No Dyspnea Cardiac: No Symptoms, No Chest Pain, No Edema, No Syncope Abdominal/Gastrointestinal: No Symptoms, No Abdominal Pain, No Nausea, No Vomiting, No Diarrhea Genitourinary Symptoms: No Symptoms, No Dysuria Musculoskeletal: No Symptoms, No Back Pain, No Neck Pain Skin: No Symptoms, No Rash Neurological: No Symptoms, No Dizziness, No Focal Weakness, No Sensory Changes Psychological: No Symptoms Endocrine: No Symptoms Hematologic/Lymphatic: No Symptoms Immunological/Allergic: No Symptoms All Other Systems: Reviewed and Negative - Past Medical History Pertinent Past Medical History: Yes Neurological History: No Pertinent History ENT History: No Pertinent History Cardiac History: Hypertension, Myocardial Infarction (DC) Respiratory History: CHF, Pneumonia Endocrine Medical History: No Pertinent History Musculoskeletal History: No Pertinent History GI Medical History: GERD History: No Pertinent History Psycho-Social History: No Pertinent History Female Reproductive Disorders: No Pertinent History Other Medical History: DOUBLE MASTOID SURGERY AT AGE 11, OPEN HEART SURGERY. 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12,three natural childbirth - Social History Smoking Status: Former smoker Exposure to second hand smoke: No Drug Use: none Patient Lives Alone: No - Nursing Vital Signs Nursing Vital Signs: Initial Vital Signs Temperature 97.8 F 08/21/23 13:42 Pulse Rate 82 08/21/23 13:42 Respiratory Rate 16 08/21/23 13:42 Blood Pressure 125/70 08/21/23 13:42 O2 Sat by Pulse Oximetry 97 08/21/23 13:42 Pain Scale Pain Intensity 0 - Physical Exam General Appearance: no apparent distress, alert Eye Exam: PERRL/EOMI, eyes nml inspection Ears, Nose, Throat Exam: normal ENT inspection, TMs normal, pharynx normal, moist mucous membranes Neck Exam: normal inspection, non-tender, supple, full range of motion Respiratory Exam: normal breath sounds, lungs clear, airway intact, No respiratory distress Cardiovascular Exam: regular rate/rhythm, normal heart sounds, normal peripheral pulses Gastrointestinal/Abdomen Exam: soft, normal bowel sounds, tenderness, other (Tenderness to palpation right upper quadrant), No mass Back Exam: normal inspection, normal range of motion, No CVA tenderness, No vertebral tenderness Extremity Exam: normal inspection, normal range of motion, pelvis stable Neurologic Exam: alert, oriented x 3, cooperative, normal mood/affect, sensation nml, No motor deficits Skin Exam: normal color, warm, dry, No rash Lymphatic Exam: No adenopathy SpO2 Interpretation: normal SpO2: 97 O2 Delivery: Room Air - Course Nursing assessment & vital signs reviewed: Yes Ordered Tests: Active Orders 24 hr Category Date Time Status IV Insertion STAT Care 08/21/23 13:56 Active CBC W DIFF Stat Lab 08/21/23 14:40 Completed CMP Stat Lab 08/21/23 14:30 Completed CULTURE,URINE Stat Lab 08/21/23 Received LIPASE Stat Lab 08/21/23 14:30 Completed TROPONIN Q4H Lab 08/21/23 14:00 Completed TROPONIN Q4H Lab 08/21/23 18:00 Ordered TROPONIN Q4H Lab 08/21/23 22:00 Ordered UA W/RFX UR CULTURE Stat Lab 08/21/23 Completed Medication Summary Generic Name Dose Route Start Last Admin Trade Name Freq PRN Reason Stop Dose Admin Lactated Ringer's 1,000 mls @ 250 mls/hr 08/21/23 15:00 08/21/23 15:05 Lactated Ringers IV 09/20/23 14:59 50 mls/hr .Q4H MERCEDES Administration Discontinued Medications Generic Name Dose Route Start Last Admin Trade Name Freq PRN Reason Stop Dose Admin Bupivacaine HCl Confirm 08/21/23 15:15 Bupivacaine Hcl 2.5 Mg/Ml 10 Ml Administered 08/21/23 15:16 Dose 10 ml .ROUTE .[employer] ONE Lab/Rad Data: Laboratory Result Diagrams 08/21/23 14:40 08/21/23 14:30 Laboratory Results 08/21/23 08/21/23 08/21/23 Range/Units Unknown 14:40 14:30 WBC 8.3 (4.0-10.5) x10^3/uL RBC 5.05 (4.1-5.4) x10^6/uL Hgb 12.5 (12.0-16.0) g/dL Hct 40.8 (35-47) % MCV 80.8 (78-100) fL MCH 24.8 L (26-32) pg MCHC 30.6 L (32-36) g/dL RDW 16.6 H (11.5-14.0) % Plt Count 166 (150-450) x10^3/uL MPV 11.3 H (7.5-11.0) fL Gran % 78.2 H (36.0-66.0) % Immature Gran % (Auto) 0.4 (0.00-0.4) % Nucleat RBC Rel Count 0.0 (0.00-0.1) % Eos # (Auto) 0.03 (0-0.5) x10^3/uL Immature Gran # (Auto) 0.03 (0.00-0.03) x10^3u/L Absolute Lymphs (auto) 1.12 (1.0-4.6) x10^3/uL Absolute Monos (auto) 0.58 (0.0-1.3) x10^3/uL Absolute Nucleated RBC 0.00 (0.00-0.01) x10^3u/L Lymphocytes % 13.6 L (24.0-44.0) % Monocytes % 7.0 (0.0-12.0) % Eosinophils % 0.4 (0.00-5.0) % Basophils % 0.4 (0.0-0.4) % Absolute Granulocytes 6.46 (1.4-6.9) x10^3/uL Basophils # 0.03 (0-0.4) x10^3/uL Sodium 135 L (137-145) mmol/L Potassium 3.8 (3.5-5.1) mmol/L Chloride 102 (98-107) mmol/L Carbon Dioxide 26 (22-30) mmol/L Anion Gap 11.3 (5-15) MEQ/L BUN 13 (7-17) mg/dL Creatinine 0.67 (0.52-1.04) mg/dL Estimated GFR 92.2 ML/MIN Glucose 147 H (74-106) mg/dL Calcium 9.5 (8.4-10.2) mg/dL Total Bilirubin 3.40 H (0.2-1.3) mg/dL AST 117 H (14-36) U/L ALT 102 H (0-35) U/L Alkaline Phosphatase 100 (38-126) U/L Troponin I (0.000-0.034) ng/mL Serum Total Protein 6.6 (6.3-8.2) g/dL Albumin 3.7 (3.5-5.0) g/dL Lipase 613 H (23-300) U/L Urine Color [place] A (Yellow) Urine Appearance Cloudy A (Clear) Urine pH 5.5 (4.6-8.0) Ur Specific [place] >=1.030 A (1.005-1.030) Urine Protein 100 A (Negative) Urine Glucose (UA) Negative (Negative) mg/dL Urine Ketones 40 A (Negative) Urine Blood Negative (Negative) Urine Nitrite Positive A (Negative) Urine Bilirubin Large A (Negative) Urine Urobilinogen 2.0 A (0.2) mg/dL Ur Leukocyte Esterase Small A (Negative) U Hyaline Cast (Auto) None Seen (0-2) /LPF Urine Microscopic RBC 0-2 (0-5) /HPF Urine Microscopic WBC 0-2 (0-5) /HPF Ur Epithelial Cells Few (None Seen) /HPF Calcium Oxalate Crystal 3-5 A (None Seen) /HPF Urine Bacteria Few A (None Seen) /HPF Urine Culture Reflexed YES (NO) 08/21/23 Range/Units 14:00 WBC (4.0-10.5) x10^3/uL RBC (4.1-5.4) x10^6/uL Hgb (12.0-16.0) g/dL Hct (35-47) % MCV (78-100) fL MCH (26-32) pg MCHC (32-36) g/dL RDW (11.5-14.0) % Plt Count (150-450) x10^3/uL MPV (7.5-11.0) fL Gran % (36.0-66.0) % Immature Gran % (Auto) (0.00-0.4) % Nucleat RBC Rel Count (0.00-0.1) % Eos # (Auto) (0-0.5) x10^3/uL Immature Gran # (Auto) (0.00-0.03) x10^3u/L Absolute Lymphs (auto) (1.0-4.6) x10^3/uL Absolute Monos (auto) (0.0-1.3) x10^3/uL Absolute Nucleated RBC (0.00-0.01) x10^3u/L Lymphocytes % (24.0-44.0) % Monocytes % (0.0-12.0) % Eosinophils % (0.00-5.0) % Basophils % (0.0-0.4) % Absolute Granulocytes (1.4-6.9) x10^3/uL Basophils # (0-0.4) x10^3/uL Sodium (137-145) mmol/L Potassium (3.5-5.1) mmol/L Chloride (98-107) mmol/L Carbon Dioxide (22-30) mmol/L Anion Gap (5-15) MEQ/L BUN (7-17) mg/dL Creatinine (0.52-1.04) mg/dL Estimated GFR ML/MIN Glucose (74-106) mg/dL Calcium (8.4-10.2) mg/dL Total Bilirubin (0.2-1.3) mg/dL AST (14-36) U/L ALT (0-35) U/L Alkaline Phosphatase (38-126) U/L Troponin I < 0.012 (0.000-0.034) ng/mL Serum Total Protein (6.3-8.2) g/dL Albumin (3.5-5.0) g/dL Lipase (23-300) U/L Urine Color (Yellow) Urine Appearance (Clear) Urine pH (4.6-8.0) Ur Specific [place] (1.005-1.030) Urine Protein (Negative) Urine Glucose (UA) (Negative) mg/dL Urine Ketones (Negative) Urine Blood (Negative) Urine Nitrite (Negative) Urine Bilirubin (Negative) Urine Urobilinogen (0.2) mg/dL Ur Leukocyte Esterase (Negative) U Hyaline Cast (Auto) (0-2) /LPF Urine Microscopic RBC (0-5) /HPF Urine Microscopic WBC (0-5) /HPF Ur Epithelial Cells (None Seen) /HPF Calcium Oxalate Crystal (None Seen) /HPF Urine Bacteria (None Seen) /HPF Urine Culture Reflexed (NO) - Progress Progress: improved Progress Note: Case discussed with hospitalist hospitalist who accepts admission to observation. 08/21/23 14:59 72-year-old female sent to our ED for preop. Patient will be going to the OR for a laparoscopic cholecystectomy. Patient had a ultrasound at an outside hospital that revealed several small gallstones in the gallbladder. No gallbladder wall thickening or tenderness. CT scan revealed small calcified gallstones in the gallbladder with mild distention of the gallbladder. CBC CMP essentially nonremarkable. Transaminitis observed on today's laboratory workup. Patient also has an elevated lipase of 613. A gram Rocephin ordered due to urinary tract infection. Lactated Ringer's running per surgical team request. Patient declined pain medication. She is in no active pain at this time. Patient will be admitted/taken to the OR for her scheduled procedure. Complexity problem addressed is high, severe exacerbation threat to bodily function. Patient will require an urgent/emergent surgical procedure COPA (number of complexity of problem addressed) Minimal, Straight forward, one self limited or minor problem Low. Acute uncomplicated stable +/- admission, Any acute or chronic illness, 2 or more self-limited or minor problems. Moderate. Acute, complicated or with systemic illness. Chronic illness with exacerbation, New diagnosis with uncertain prognosis. 2 or more chronic stable illnesses. High. Any severe exacerbation or threat to bodily function, Any treatment side effects No critical care time Complexity of data reviewed and analyzed is extensive. Test ordered test reviewed. Results analyzed and correlated clinically. Management discussed with nurse practitioner and hospitalist. Hospitalist accepts admission to observation at 2:57 PM. Risk of complication and or risk of morbidity/mortality of patient management is high. Patient requires hospitalization/surgery for further evaluation and treatment Vital stable. Time spent to admit patient approximately 20 minutes. Plan of care established for shared decision making. No social determinants of health present impede follow-up. Portions of this note were created with voice recognition technology. There may be grammatical, spelling, punctuation or sound alike errors 08/21/23 15:25 Counseled pt/family regarding: lab results, diagnosis - Departure Departure Disposition: Observation Clinical Impression: Elevated lipase, Urinary tract infection, Transaminitis, Right upper quadrant pain Condition: Stable Critical Care Time: No Referrals: GUNNAR HENDERSON MD [Primary Care Provider] - Follow up/PCP as directed
[2023-08-21 14:53] LABS: Appearance Cloudy (Clear); Bilirubin Large (Negative); Blood Negative (Negative); Glucose, Urine Negative (Negative); Ketones 40 (Negative); Leukocyte Esterase Small (Negative); Nitrite Positive (Negative); Ph 5.5 (4.6-8.0); Protein,Urine Dip 100 (Negative); Specific Gravity >=1.030 (1.005-1.030); WBC 0-2 /HPF (0-5)
[2023-08-21 14:54] LABS: Absolute Neutrophil Ct (ANC) 6.46 x10^3/uL (1.4-6.9); BASOPHIL % 0.4 % (0.0-0.4); Basophil (Absolute #) 0.03 x10^3/uL (0-0.4); Eosinophil % 0.4 % (0.00-5.0); Eosinophil (Absolute #) 0.03 x10^3/uL (0-0.5); Hematocrit 40.8 % (35-47); Hemoglobin 12.5 g/dL (12.0-16.0); IMMATURE GRAN # 0.03 x10^3u/L (0.00-0.03); IMMATURE GRAN % 0.4 % (0.00-0.4); Lymphocyte (Absolute #) 1.12 x10^3/uL (1.0-4.6); Lymphocytes % 13.6 % (24.0-44.0); Mean Cell Volume 80.8 fL (78-100); Mean Corpuscular Hemoglobin 24.8 pg (26-32); Mean Corpuscular Hgb Concent. 30.6 g/dL (32-36); Mean Platelet Volume 11.3 fL (7.5-11.0); Monocyte (Absolute #) 0.58 x10^3/uL (0.0-1.3); Neutrophil % 78.2 % (36.0-66.0); Platelet Count 166 x10^3/uL (150-450); Red Blood Count 5.05 x10^6/uL (4.1-5.4); Red Cell Distribution Width 16.6 % (11.5-14.0); White Blood Count 8.3 x10^3/uL (4.0-10.5)
[2023-08-21 14:54] LABS: ADD URINE CULTURE? YES (NO); Bacteria Few /HPF (None Seen); Epithelial Cells Few /HPF (None Seen); Hyaline Casts None Seen /LPF (0-2); RBC 0-2 /HPF (0-5)
[2023-08-21 15:05] LABS: ALBUMIN 3.7 g/dL (3.5-5.0); ANION GAP 11.3 MEQ/L (5-15); BILIRUBIN,TOTAL 3.4 mg/dL (0.2-1.3); Calcium 9.5 mg/dL (8.4-10.2); Creatinine 1 0.67 mg/dL (0.52-1.04); EST GLOMERULAR FILTRATION RATE 92.2 ML/MIN; Potassium 3.8 mmol/L (3.5-5.1); Total Protein 6.6 g/dL (6.3-8.2)
[2023-08-21] MEDS: Lactated Ringers 1,000 ML IV SCH (15:05)
[2023-08-21] MEDS ORDERED: Sensorcaine 0.25% 10 ML ONE (15:15)
[2023-08-21] MEDS ORDERED: ROCEPHIN 1 Gm-D5w 50 ml Bag** 1 G/50 ML IVPB IV STA (15:23)
--- NOTE | 2023-08-21 15:25 | PCM.HP ---
History of Present Illness - Chief Complaint Chief Complaint: cholecystitis Date: 08/21/23 History of Present Illness: is a 72 year old female with PMHX of HTN, CA, CHF, GERD, CABG, angioplasty, stent, and L4-L5 surgery. In february she had a left hip replacement. S he reports she was at [facility] 2 days ago and was seen in ER for abd pain, N/V. She was sent home and was advised to f/u OP with GS. She saw her PCP yesterday and was given [place] for pain. She saw Dr. Rosa today and he recommended her gallbladder be removed today. She is from [place] and requested it to be done here. She was told to stop plavix this AM. She last ate 1/2 a protein shake this AM but vomited it all up. She also reports a sip of water this AM. US report from [place] reviewed from 08/19/23 and showed gallstones in gallbladder. CT abd from 08/19/23 showed small calcified gallstones in the gallbladder and mild distention of the gallbladder. LR @ 50 started in ER. She reports feeling nauseated and just overall ill. She has no abd pain on palpation. She denies CP or SOB. PCP: Dr. Her Cardiology: Dr. Olsen - Review of Systems Constitutional: No Fever, No Chills Eyes: No Symptoms Ears, Nose, & Throat: No Symptoms Respiratory: No Cough, No Short Of Breath Cardiac: No Chest Pain, No Edema, No Syncope Abdominal/Gastrointestinal: Abdominal Pain, Nausea, Vomiting, No Diarrhea Genitourinary Symptoms: No Dysuria Musculoskeletal: No Back Pain, No Neck Pain Skin: No Rash Neurological: No Dizziness, No Focal Weakness, No Sensory Changes Psychological: No Symptoms Endocrine: No Symptoms Hematologic/Lymphatic: No Symptoms Immunological/Allergic: No Symptoms Medications & Allergies Home Medications: Home Medication List Aspirin 81 gm Chew [Baby Aspirin 81 mg Chew] 81 mg PO DAILY 01/12/15 [History Confirmed 08/21/23] Esomeprazole Magnesium [Nexium] 20 mg PO DAILY 01/18/15 [History Confirmed 08/21/23] Carvedilol 12.5 mg [Coreg 12.5 mg] 1 tab PO BID 10/22/21 [History Confirmed 08/21/23] Clopidogrel Bisulfate [Clopidogrel] 75 mg PO DAILY 10/22/21 [History Confirmed 08/21/23] Ezetimibe 10 mg [Zetia 10 MG] 1 tab PO DAILY 10/22/21 [History Confirmed 08/21/23] Isosorbide Mononitrate [Isosorbide Mononitrate ER] 1 tab PO DAILY 10/22/21 [History Confirmed 08/21/23] Ranolazine [Ranolazine ER] 500 mg PO BID 10/22/21 [History Confirmed 08/21/23] Cyanocobalamin (Vitamin B-12) [Vitamin B12] 1,000 mcg PO DAILY 02/07/23 [History Confirmed 08/21/23] Evolocumab [Repatha Sureclick] 140 mg IM WEEKLY 02/07/23 [History Confirmed 08/21/23] Amlodipine Besylate 5 mg [Norvasc 5 mg] 5 mg PO DAILY 08/21/23 [History Confirmed 08/21/23] Furosemide 40 mg [Lasix 40 MG] 40 mg PO DAILY 08/21/23 [History Confirmed 08/21/23] Hydrocodone/Acetaminophen [Hydrocodone-Acetamin 5-325 mg] 1 tab PO Q6HPRN PRN MDD 4 08/21/23 [History Confirmed 08/21/23] Potassium Chloride Tab* [Klor Con] 10 meq PO DAILY 08/21/23 [History Confirmed 08/21/23] Allergies/Adverse Reactions: Allergies Allergy/AdvReac Type Severity Reaction Status Date / Time ciprofloxacin Allergy Severe Verified 08/21/23 14:07 acetaminophen [From Vicodin] Allergy Shortness Verified 08/21/23 14:07 of Breath hydrocodone bitartrate Allergy Shortness Verified 08/21/23 14:07 [From Vicodin] of Breath methylprednisolone Allergy Verified 08/21/23 14:26 sulfamethoxazole AdvReac Vomiting Verified 08/21/23 14:08 [From Bactrim] trimethoprim [From Bactrim] AdvReac Vomiting Verified 08/21/23 14:08 - Past Medical History Past Medical History: Yes Neurological History: No Pertinent History ENT History: No Pertinent History Cardiac History: Hypertension, Myocardial Infarction (CA) Respiratory History: CHF, Pneumonia Endocrine Medical History: No Pertinent History Musculoskelatal History: No Pertinent History GI Medical History: GERD History: No Pertinent History Pyscho-Social History: No Pertinent History Reproductive Disorders: No Pertinent History Comment: DOUBLE MASTOID SURGERY AT AGE 11, OPEN HEART SURGERY. - Past Surgical History Past Surgical History: Yes Neuro Surgical History: No Pertinent History Cardiac History: Angioplasty, CABG, Cardiac Stent Respiratory Surgery: No Pertinent History GI Surgical History: Other Genitourinary Surgical Hx: No Pertinent History Musculskeletal Surgical Hx: Other Female Surgical History: No Pertinent History Other Surgical History: l4,l5 disc surgery,unknown,double mastoid at age 12,three natural childbirth - Social History Smoking Status: Former smoker Exposure to second hand smoke: No Alcohol: None Drug Use: none - Physical Exam Vital Signs: Vital Signs - 24 hr Temp Pulse Resp BP BP Pulse Ox 08/21/23 15:05 97.8 F 80 20 125/70 97 08/21/23 15:02 97 08/21/23 15:00 74 29 H 107/59 96 08/21/23 14:46 78 17 124/59 08/21/23 14:45 7 L 97 08/21/23 14:44 96 08/21/23 14:00 75 119/66 08/21/23 13:42 97.8 F 82 16 125/70 97 General Appearance: no apparent distress, alert, obese Neurologic Exam: alert, oriented x 3, cooperative, normal mood/affect, nml cerebellar function, nml station & gait, sensation nml, No motor deficits Eye Exam: PERRL/EOMI, eyes nml inspection Ears, Nose, Throat Exam: normal ENT inspection, TMs normal, pharynx normal, moist mucous membranes Neck Exam: normal inspection, non-tender, supple, full range of motion Respiratory Exam: normal breath sounds, lungs clear, No respiratory distress Cardiovascular Exam: regular rate/rhythm, normal heart sounds, normal peripheral pulses Gastrointestinal/Abdomen Exam: soft, normal bowel sounds, No tenderness, No mass Back Exam: normal inspection, normal range of motion, No CVA tenderness, No vertebral tenderness Extremity Exam: normal inspection, normal range of motion, pelvis stable Skin Exam: normal color, warm, dry, No rash Lymphatic Exam: No adenopathy Results - Labs Lab/Micro Results: Lab Results-Last 24 Hours 08/21/23 08/21/23 08/21/23 Range/Units 14:30 14:40 Unknown WBC 8.3 (4.0-10.5) x10^3/uL RBC 5.05 (4.1-5.4) x10^6/uL Hgb 12.5 (12.0-16.0) g/dL Hct 40.8 (35-47) % MCV 80.8 (78-100) fL MCH 24.8 L (26-32) pg MCHC 30.6 L (32-36) g/dL RDW 16.6 H (11.5-14.0) % Plt Count 166 (150-450) x10^3/uL MPV 11.3 H (7.5-11.0) fL Gran % 78.2 H (36.0-66.0) % Immature Gran % (Auto) 0.4 (0.00-0.4) % Nucleat RBC Rel Count 0.0 (0.00-0.1) % Eos # (Auto) 0.03 (0-0.5) x10^3/uL Immature Gran # (Auto) 0.03 (0.00-0.03) x10^3u/L Absolute Lymphs (auto) 1.12 (1.0-4.6) x10^3/uL Absolute Monos (auto) 0.58 (0.0-1.3) x10^3/uL Absolute Nucleated RBC 0.00 (0.00-0.01) x10^3u/L Lymphocytes % 13.6 L (24.0-44.0) % Monocytes % 7.0 (0.0-12.0) % Eosinophils % 0.4 (0.00-5.0) % Basophils % 0.4 (0.0-0.4) % Absolute Granulocytes 6.46 (1.4-6.9) x10^3/uL Basophils # 0.03 (0-0.4) x10^3/uL Sodium 135 L (137-145) mmol/L Potassium 3.8 (3.5-5.1) mmol/L Chloride 102 (98-107) mmol/L Carbon Dioxide 26 (22-30) mmol/L Anion Gap 11.3 (5-15) MEQ/L BUN 13 (7-17) mg/dL Creatinine 0.67 (0.52-1.04) mg/dL Estimated GFR 92.2 ML/MIN Glucose 147 H (74-106) mg/dL Calcium 9.5 (8.4-10.2) mg/dL Total Bilirubin 3.40 H (0.2-1.3) mg/dL AST 117 H (14-36) U/L ALT 102 H (0-35) U/L Alkaline Phosphatase 100 (38-126) U/L Serum Total Protein 6.6 (6.3-8.2) g/dL Albumin 3.7 (3.5-5.0) g/dL Lipase 613 H (23-300) U/L Urine Color [place] A (Yellow) Urine Appearance Cloudy A (Clear) Urine pH 5.5 (4.6-8.0) Ur Specific [place] >=1.030 A (1.005-1.030) Urine Protein 100 A (Negative) Urine Glucose (UA) Negative (Negative) mg/dL Urine Ketones 40 A (Negative) Urine Blood Negative (Negative) Urine Nitrite Positive A (Negative) Urine Bilirubin Large A (Negative) Urine Urobilinogen 2.0 A (0.2) mg/dL Ur Leukocyte Esterase Small A (Negative) U Hyaline Cast (Auto) None Seen (0-2) /LPF Urine Microscopic RBC 0-2 (0-5) /HPF Urine Microscopic WBC 0-2 (0-5) /HPF Ur Epithelial Cells Few (None Seen) /HPF Calcium Oxalate Crystal 3-5 A (None Seen) /HPF Urine Bacteria Few A (None Seen) /HPF Urine Culture Reflexed YES (NO) Assessment/Plan (1) Cholecystitis Current Visit: Yes Status: Acute Assessment & Plan: - Plan is for surgery today with Dr. Hanson - LR @ 50ml started in ER - NPO - Zofran for N/V - pain control Code(s): K81.9 - CHOLECYSTITIS, UNSPECIFIED (2) Obesity (BMI 30.0-34.9) Current Visit: Yes Status: Acute Assessment & Plan: - advised diet and exercise control Code(s): E66.9 - OBESITY, UNSPECIFIED (3) HTN (hypertension) Current Visit: Yes Status: Acute Assessment & Plan: - Cont home BP meds after surgery Code(s): I10 - ESSENTIAL (PRIMARY) HYPERTENSION (4) GERD (gastroesophageal reflux disease) Current Visit: Yes Status: Acute Assessment & Plan: - Continue PPI Code(s): K21.9 - GASTRO-ESOPHAGEAL REFLUX DISEASE WITHOUT ESOPHAGITIS
[2023-08-21 15:37] LABS: Slide Review 1 YES
[2023-08-21] MEDS ORDERED: ROCEPHIN 1 Gm-D5w 50 ml Bag** 1 G/50 ML IVPB IV ONE (15:42)
[2023-08-21] MEDS ORDERED: SUBLIMAZE 100 MCG/2 ML ONE (15:58)
[2023-08-21] MEDS ORDERED: Zemuron 100 MG/10 ML ONE (15:58)
[2023-08-21] MEDS ORDERED: Amidate 20 MG/10 ML IV ONE (15:58)
[2023-08-21] MEDS ORDERED: ENOXAPARIN SODIUM SQ ONE ×2 (16:47→16:49)
[2023-08-21] MEDS ORDERED: Ranexa 500 MG PO ONE (23:04)
[2023-08-21] MEDS ORDERED: NORVASC 5 MG PO ONE (23:05)
[2023-08-21] MEDS ORDERED: NORVASC 5 MG ONE (23:06)
[2023-08-21] MEDS ORDERED: COREG 12.5 MG ONE (23:24)
[2023-08-22] MEDS ORDERED: Ranexa 500 MG PO ONE (09:16)
[2023-08-22] MEDS ORDERED: ROCEPHIN 1 Gm-D5w 50 ml Bag** 1 G/50 ML IVPB IV STA (13:39)
[2023-08-22] MEDS ORDERED: ROCEPHIN 1 Gm-D5w 50 ml Bag** 1 G/50 ML IVPB IV ONE (15:49)
[2023-08-22 16:25] VITALS: RESP 22
[2023-08-22 16:57] LABS: Absolute Neutrophil Ct (ANC) 4.62 x10^3/uL (1.4-6.9); BASOPHIL % 0.3 % (0.0-0.4); Basophil (Absolute #) 0.02 x10^3/uL (0-0.4); Eosinophil % 0.9 % (0.00-5.0); Eosinophil (Absolute #) 0.06 x10^3/uL (0-0.5); Hematocrit 37.2 % (35-47); Hemoglobin 11.4 g/dL (12.0-16.0); IMMATURE GRAN # 0.03 x10^3u/L (0.00-0.03); IMMATURE GRAN % 0.5 % (0.00-0.4); Lymphocyte (Absolute #) 1.38 x10^3/uL (1.0-4.6); Lymphocytes % 21.1 % (24.0-44.0); Mean Cell Volume 80.2 fL (78-100); Mean Corpuscular Hemoglobin 24.6 pg (26-32); Mean Corpuscular Hgb Concent. 30.6 g/dL (32-36); Mean Platelet Volume 10.7 fL (7.5-11.0); Monocyte (Absolute #) 0.43 x10^3/uL (0.0-1.3); Monocytes % 6.6 % (0.0-12.0); Neutrophil % 70.6 % (36.0-66.0); Platelet Count 186 x10^3/uL (150-450); Red Blood Count 4.64 x10^6/uL (4.1-5.4); Red Cell Distribution Width 16.8 % (11.5-14.0); White Blood Count 6.5 x10^3/uL (4.0-10.5)
[2023-08-22 17:14] LABS: ALBUMIN 3.6 g/dL (3.5-5.0); ANION GAP 11.1 MEQ/L (5-15); BILIRUBIN,TOTAL 0.9 mg/dL (0.2-1.3); Calcium 9.2 mg/dL (8.4-10.2); Creatinine 1 0.71 mg/dL (0.52-1.04); EST GLOMERULAR FILTRATION RATE 89.7 ML/MIN; Potassium 3.5 mmol/L (3.5-5.1); Total Protein 6.5 g/dL (6.3-8.2)
[2023-08-22] MEDS ORDERED: Sodium Chloride 0.9% 1000 ML 1,000 ML ONE (17:32)
[2023-08-22] MEDS: Lactated Ringers 1,000 ML IV SCH (17:33)
[2023-08-22] MEDS ORDERED: Sodium Chloride 0.9% 1000 ML 1,000 ML IV SCH (17:45)
[2023-08-22 18:02] VITALS: BP 157/57; PULSE 72; O2SAT 97
[2023-08-22] MEDS ORDERED: COREG 12.5 MG PO ONE (23:05)
== END 2023-08-22 17:46 | disposition short-term general hospital (02) ==
LOC: ED 13:38
DX: N39.0 Urinary tract infection, site not specified (principal); R74.8 Abnormal levels of other serum enzymes; R74.01 Elevation of levels of liver transaminase levels; I48.91 Unspecified atrial fibrillation; I10 Essential (primary) hypertension; Z79.02 Long term (current) use of antithrombotics/antiplatelets; Z79.891 Long term (current) use of opiate analgesic; Z79.899 Other long term (current) drug therapy
CPT/HCPCS: 36000; 36415; 80053; 81001; 82150; 83605; 83690; 84484; 85025; 87086; 96365; 96372; 99285; J0696; J1650; J3010; A9270-GY